=== PATIENT | female | born 1990 | race Caucasian/White ===

== ENCOUNTER → 2017-11-05 | Outpatient (CLI) | payer OTHER | LOC: YCFC.O 01:15 | PROVIDERS: ATTEND Nurse Practitioner Family | DX: Z00.00 Encounter for general adult medical examination without abnormal findings (principal); Z80.0 Family history of malignant neoplasm of digestive organs ==

== ENCOUNTER 2018-01-28 14:58 | Emergency (ER) | payer OTHER ==
[2018-01-28 15:16] VITALS: TEMP 98.2
--- NOTE | 2018-01-28 15:52 | ED.PDOC ---
History of Present Illness - General Chief Complaint: Cardiovascular Problem Stated Complaint: tachycardia Time Seen by Provider: 01/28/18 15:19 - History of Present Illness Initial Comments: Katie Snyder 27 y/o female employee here at 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 Timing/Duration: 1-3 hours Severity: moderate Location: other - no chest pains Activities at Onset: activity Allergies/Adverse Reactions: Allergies Sulfamethoxazole w/Trimethoprim [From Bactrim] Allergy (Verified 01/28/18 15:12) Home Medications: Ambulatory Orders Control Pill 01/28/18 Review of Systems - Review of Systems Constitutional: States: no symptoms reported EENTM: States: no symptoms reported Respiratory: States: no symptoms reported Cardiology: States: see HPI Gastrointestinal/Abdominal: States: no symptoms reported Genitourinary: States: no symptoms reported Musculoskeletal: States: no symptoms reported Skin: States: no symptoms reported Neurological: States: no symptoms reported Past Medical History (General) - Patient Medical History Hx Stroke: No Hx Cardiac Disorders: Yes - Tachycardia Hx Diabetes: No Surgical History: no surgical history - Vaccination History Hx Influenza Vaccination: Yes - Social History Hx Tobacco Use: No Hx Alcohol Use: No Hx Substance Use: No Hx Substance Use Treatment: No Hx Physical Abuse: No Hx Emotional Abuse: No - Female History Patient is a Female of Child Bearing Age (10 -59 yrs old): Yes Hx Last Menstrual Period: 12/29/17 Patient : No - OCP Family Medical History - Family History Mother Living Status: Unknown Hx Family Cancer: Yes - mom -liver in remission Physical Exam - Physical Exam General Appearance: Alert, Comfortable, No apparent distress Eyes, Ears, Nose, Throat Exam: normal ENT inspection Neck: non-tender, full range of motion, supple, other - no thyromegaly Respiratory: chest non-tender, lungs clear, normal breath sounds, no respiratory distress Cardiovascular/Chest: normal peripheral pulses, no gallop, tachycardia - HR-120 Peripheral Pulses: radial,right: 2+, radial,left: 2+ Gastrointestinal/Abdominal: non tender, soft, no organomegaly Extremity: non-tender, no pedal edema, no calf tenderness Neurologic: alert, oriented x 3 Skin Exam: normal color, warm/dry Lymphatic: no adenopathy Progress - Progress Progress: 01/28/18 16:25 Vital Signs - 8 hr 01/28/18 01/28/18 01/28/18 15:06 15:26 16:19 Temperature 98.2 F Pulse Rate 138 H Pulse Rate [ 138 H 138 H 100 H Left Brachial] Respiratory 20 16 Rate Blood Pressure 136/73 141/70 [Left Arm] O2 Sat by Pulse 100 99 Oximetry 01/28/18 18:10 Hersey better after given Iv fluids and potassium - Results/Orders Results/Orders: 01/28/18 15:20 EKG Assessment DAILY 01/28/18 15:30 EKG STAT Laboratory Results - last 24 hr 01/28/18 01/28/18 01/28/18 15:25 15:25 15:25 WBC 12.6 H RBC 4.66 Hgb 14.0 Hct 41.3 MCV 88.5 MCH 29.9 MCHC 33.8 RDW 13.0 Plt Count 390 MPV 7.9 Absolute Neuts (auto) 7.90 H Absolute Lymphs (auto) 3.80 H Absolute Monos (auto) 0.70 Absolute Eos (auto) 0.10 Absolute Basos (auto) 0.10 Neutrophils % 62.7 Lymphocytes % 30.4 Monocytes % 5.6 Eosinophils % 0.8 L Basophils % 0.5 PT 10.1 INR 1.01 PTT (SP) 24.5 D-Dimer, Quantitative 0.46 Sodium 141 Potassium 2.8 L Chloride 107 Carbon Dioxide 23 Anion Gap 13.8 BUN 8 Creatinine 0.82 BUN/Creatinine Ratio 9.8 L Random Glucose 101 Serum Osmolality 279.7 Calcium 9.0 Magnesium 1.9 Total Bilirubin 0.4 Direct Bilirubin 0.1 Indirect Bilirubin 0.3 AST 22 ALT 14 Alkaline Phosphatase 47 Creatine Kinase 121 CK-MB (CK-2) 1.3 CK-MB (CK-2) % Not Reportable Troponin I < 0.02 Serum Total Protein 7.4 Albumin 4.4 TSH 1.56 Urine Color Urine Appearance Urine pH Ur Specific [place] Urine Protein Urine Glucose (UA) Urine Ketones Urine Blood Urine Nitrite Urine Bilirubin Urine Urobilinogen Ur Leukocyte Esterase Urine RBC Urine WBC Ur Epithelial Cells Urine Bacteria Urine Mucus Urine HCG, Qual Negative 01/28/18 01/28/18 16:40 17:05 WBC RBC Hgb Hct MCV MCH MCHC RDW Plt Count MPV Absolute Neuts (auto) Absolute Lymphs (auto) Absolute Monos (auto) Absolute Eos (auto) Absolute Basos (auto) Neutrophils % Lymphocytes % Monocytes % Eosinophils % Basophils % PT INR PTT (SP) D-Dimer, Quantitative Sodium Potassium Chloride Carbon Dioxide Anion Gap BUN Creatinine BUN/Creatinine Ratio Random Glucose Serum Osmolality Calcium Magnesium Total Bilirubin Direct Bilirubin Indirect Bilirubin AST ALT Alkaline Phosphatase Creatine Kinase CK-MB (CK-2) CK-MB (CK-2) % Troponin I < 0.02 Serum Total Protein Albumin TSH Urine Color Yellow Urine Appearance Clear Urine pH 6.0 Ur Specific [place] 1.020 Urine Protein Negative Urine Glucose (UA) Negative Urine Ketones Negative Urine Blood Small H Urine Nitrite Negative Urine Bilirubin Negative Urine Urobilinogen 0.2 Ur Leukocyte Esterase Trace H Urine RBC 1-3 Urine WBC 1-3 Ur Epithelial Cells 1-3 Urine Bacteria 1+ Urine Mucus Trace Urine HCG, Qual - EKG/XRAY/CT EKG: Sinus, Tachy, no ST T wave changes Comments: HR-126 XRAY: chest - no acute cardiopulmonary process/radiologist Departure - Departure Clinical Impression: Heart palpitations, Sinus tachycardia, Hypokalemia Time of Disposition: 18:12 Disposition: Discharge to Home or Self Care Condition: Good Departure Forms: ED Discharge - Pt. Copy, Patient Portal Self Enrollment Instructions: Palpitations (DC), Palpitations, Hypokalemia (DC), Hypokalemia Home Medications: Ambulatory Orders Control Pill 01/28/18 Additional Instructions: Return to ER as needed;May take over the counter Potassium tablets 2 tablets daily for 7 days and follow up with your primary Md for re check of potassium in one week
--- NOTE | 2018-01-28 15:53 | RAD ---
EXAM DESCRIPTION: Chest,1 View CLINICAL HISTORY: pain COMPARISON: None available FINDINGS: Single upright portable frontal view of the chest. Cardiomediastinal silhouette and pulmonary vascularity are within normal limits. Lungs are clear without focal consolidations. Bilateral costophrenic angles are sharp. No pneumothorax. Visualized osseous structures show no destructive lesions. IMPRESSION: No radiographic evidence for acute cardiopulmonary process. Electronically signed by: Khai Anguiano MD 01/28/2018 3:51 PM CDT
[2018-01-28] MEDS ORDERED: LACTATED RINGERS 1,000 ML IVS ONE (16:01)
[2018-01-28] MEDS ORDERED: POTASSIUM CHLORIDE 20 MEQ TAB PO ONE (16:02)
[2018-01-28 16:19] VITALS: O2SAT 99
[2018-01-28 18:30] VITALS: BP 120/67
== END 2018-01-28 18:30 | disposition home or self-care (01) ==
LOC: ER 14:58
DX: R00.0 Tachycardia, unspecified (principal); R00.2 Palpitations; E87.6 Hypokalemia; Z88.2 Allergy status to sulfonamides